=== PATIENT | female | born 1980 | race Caucasian/White ===

== ENCOUNTER 2021-08-06 19:48 | Emergency (ER) | payer OTHER ==
[~2021-08-06] VITALS: Ht 160 cm; Wt 61.2 kg
[2021-08-06 20:20] VITALS: BP 136/92
--- NOTE | 2021-08-06 20:56 | NUR ---
SEEN BY MANUFACTURING QUALITY MANAGER
--- NOTE | 2021-08-06 21:49 | NUR ---
Patient discharged to home in stable condition. Written and verbal after care instructions given. Patient verbalizes understanding of instruction. Pt ambulatory with a steady gait
== END 2021-08-06 21:51 | disposition home or self-care (01) ==
LOC: ER 19:53
DX: S40.022A Contusion of left upper arm, initial encounter (principal); W22.8XXA Striking against or struck by other objects, initial encounter; Y93.89 Activity, other specified; Y92.89 Other specified places as the place of occurrence of the external cause; Y99.8 Other external cause status
CPT/HCPCS: 73080-TC; 73090-TC